=== PATIENT | female | born 1995 | race Caucasian/White ===

== ENCOUNTER 2017-05-06 17:45 | Emergency (ER) | payer SELFPAY ==
[~2017-05-06] VITALS: Ht 160 cm; Wt 75.6 kg
[2017-05-06 18:31] LABS: HEMATOCRIT 45.2 % (34.6-47.8); HEMOGLOBIN 15.3 g/dL (11.7-16.4); WHITE BLOOD COUNT 8.4 x10^3/uL (3.4-10)
[2017-05-06 19:13] VITALS: BP 117/65
== END 2017-05-06 20:14 | disposition home or self-care (01) ==
LOC: ED 20:08
DX: O20.0 Threatened abortion (principal); Z3A.01 Less than 8 weeks gestation of pregnancy
CPT/HCPCS: 36415; 76801; 81003; 84702; 85025; 86901; 99285

== ENCOUNTER 2017-07-21 04:45 | Emergency (ER) | payer MEDICAID ==
[~2017-07-21] VITALS: Ht 160 cm; Wt 75.9 kg
[~2017-07-21 04:45] MED LIST: PRENATAL
[2017-07-21] MEDS ORDERED: PHENAZOPYRIDINE 200 MG TABLET PO ONE (06:00)
[2017-07-21 06:10] LABS: BASOPHILS # (AUTO) 0.03 x10^3/uL (0-0.1); BASOPHILS % (AUTO) 0 % (0-1); EOSINOPHILS # (AUTO) 0.08 x10^3/uL (0-0.4); EOSINOPHILS % (AUTO) 1 % (1-7); LYMPHOCYTES # (AUTO) 3.17 x10^3/uL (1-3.4); LYMPHOCYTES % (AUTO) 40 % (22-44); MD NO; MEAN CORPUSCULAR HEMOGLOBIN 29.9 pg (27.0-34.8); MEAN CORPUSCULAR HGB CONC 34.5 g/dL (32.4-35.8); MEAN CORPUSCULAR VOLUME 86.7 fL (80-100); MEAN PLATELET VOLUME 8.2 fL (7.4-10.4); MONOCYTES # (AUTO) 0.56 x10^3/uL (0.2-0.8); MONOCYTES % (AUTO) 7 % (2-9); NEUTROPHILS # (AUTO) 4.05 x10^3/uL (1.8-6.8); NEUTROPHILS % (AUTO) 51 % (42-75); PLATELET COUNT 228 x10^3/uL (130-400); RED BLOOD COUNT 4.18 x10^6/uL (3.82-5.3); RED CELL DISTRIBUTION WIDTH 12.3 % (9.6-15.2)
[2017-07-21 06:21] LABS: CHLORIDE 106 mmol/L (98-107)
[2017-07-21] MEDS ORDERED: PHENAZOPYRIDINE 200 MG TABLET ONE ×2 (06:29→07:37)
[2017-07-21 06:37] LABS: ALANINE AMINOTRANSFERASE 25 U/L (12-78); ALBUMIN 3.1 g/dL (3.4-5.0); ALKALINE PHOSPHATASE 58 U/L (45-117); ANION GAP 10 mmol/L (5-15); BILIRUBIN,TOTAL 0.3 mg/dL (0.2-1.0); CALCIUM 8.7 mg/dL (8.5-10.1); CREATININE 0.65 mg/dL (0.55-1.02); TOTAL PROTEIN 6.8 g/dL (6.4-8.2)
[2017-07-21 07:14] LABS: CULTURE INDICATED? NO; MICROSCOPIC NOT IND
[2017-07-21 08:16] VITALS: BP 91/56
== END 2017-07-21 08:18 | disposition home or self-care (01) ==
LOC: ED 05:52
DX: O26.892 Other specified pregnancy related conditions, second trimester (principal); R10.30 Lower abdominal pain, unspecified; Z3A.15 15 weeks gestation of pregnancy
CPT/HCPCS: 36415; 76805; 80053; 81003; 85025; 99285

== ENCOUNTER 2020-02-06 19:59 | Emergency (ER) | payer MEDICAID ==
[~2020-02-06] VITALS: Ht 160 cm; Wt 70.0 kg
--- NOTE | 2020-02-06 20:20 | NUR ---
PT AMBULATORY TO ROOM NOW, STEADY GAIT.
--- NOTE | 2020-02-06 20:37 | NUR ---
PT WENT FROM IUD TO PILL FORM CONTROL AT THE END OF NOVEMBER. FORGOT TO TAKE IT ONE DAY TOWARDS THE END OF DECEMBER. PT STATES SHE TOOK 4 TESTS THAT ALL CAME BACK POSITIVE, BUT IS UNSURE OF HOW MANY WEEKS SHE IS. PT REPORTS SPOTTING STARTING TODAY, CRAMPING YESTERDAY. ERP TO BEDSIDE.
[2020-02-06 20:41] LABS: BASOPHILS # (AUTO) 0.04 x10^3/uL (0-0.1); BASOPHILS % (AUTO) 1 % (0-1); EOSINOPHILS # (AUTO) 0.04 x10^3/uL (0-0.4); EOSINOPHILS % (AUTO) 1 % (1-7); LYMPHOCYTES # (AUTO) 2.68 x10^3/uL (1-3.4); LYMPHOCYTES % (AUTO) 40 % (22-44); MD NO; MEAN CORPUSCULAR HEMOGLOBIN 29.6 pg (27.0-34.8); MEAN CORPUSCULAR HGB CONC 33.4 g/dL (32.4-35.8); MEAN CORPUSCULAR VOLUME 88.7 fL (80-100); MEAN PLATELET VOLUME 8.6 fL (7.4-10.4); MONOCYTES # (AUTO) 0.44 x10^3/uL (0.2-0.8); MONOCYTES % (AUTO) 7 % (2-9); NEUTROPHILS # (AUTO) 3.59 x10^3/uL (1.8-6.8); NEUTROPHILS % (AUTO) 53 % (42-75); PLATELET COUNT 291 x10^3/uL (130-400); RED BLOOD COUNT 4.83 x10^6/uL (3.82-5.3); RED CELL DISTRIBUTION WIDTH 13.1 % (9.6-15.2)
[2020-02-06 20:52] LABS: ANION GAP 4 mmol/L (5-15); CALCIUM 8.8 mg/dL (8.5-10.1); CHLORIDE 109 mmol/L (98-107); CREATININE 1.15 mg/dL (0.55-1.02)
[2020-02-06] MEDS ORDERED: ACETAMINOPHEN 500 MG TABLET ONE (20:54)
[2020-02-06] MEDS ORDERED: ONDANSETRON ODT 4 MG ONE (20:54)
--- NOTE | 2020-02-06 21:02 | NUR ---
PT IN IMAGING.
[2020-02-06 21:14] LABS: MICROSCOPIC INDICATED
[2020-02-06] MEDS ORDERED: BIRTH CONTROL (21:24)
--- NOTE | 2020-02-06 21:24 | NUR ---
PT LAYING IN BED, WATCHING TV, BELONGINGS AND CALL LIGHT IN REACH. ALL NEEDS MET AT THIS TIME. WILL CONTINUE TO MONITOR AND WATCH FOR ORDERS.
[2020-02-06] MEDS ORDERED: ONDANSETRON ODT 4 MG PO ONE (22:00)
[2020-02-06] MEDS ORDERED: ACETAMINOPHEN 500 MG TABLET PO ONE (22:00)
[2020-02-06 22:03] VITALS: BP 110/58
== END 2020-02-06 22:32 | disposition home or self-care (01) ==
LOC: ED 21:39
DX: O20.0 Threatened abortion (principal); G43.909 Migraine, unspecified, not intractable, without status migrainosus; Z3A.01 Less than 8 weeks gestation of pregnancy; O46.8X9 Other antepartum hemorrhage, unspecified trimester
CPT/HCPCS: 36415; 76856; 80048; 81001; 82040; 84702; 85025; 86901; 87086; 99284; Q0162